=== PATIENT | female | born 1990 | race American Indian/Alaskan Native ===

== ENCOUNTER 2017-07-22 09:03 | Emergency (ER) | payer MEDICAID ==
[2017-07-22 09:51] LABS: Basophils # (Auto) 0.1 K/mm3 (0.0-0.1); Basophils % (Auto) 0.6 % (0.0-1.8); Eosinophils # (Auto) 0.3 K/mm3 (0.0-0.4); Eosinophils % (Auto) 3.6 % (0.0-4.3); Hemoglobin 12.2 gm/dl (10.1-14.3); Lymphocytes # (Auto) 2.1 K/mm3 (1.2-5.4); Lymphocytes % (Auto) 22.6 % (13.4-35.0); Mean Corpuscular HGB Conc 34 % (30-34); Mean Corpuscular Hemoglobin 28 pg (28-32); Mean Corpuscular Volume 83 fl (79-97); Monocytes # (Auto) 1.1 K/mm3 (0.0-0.8); Monocytes % (Auto) 11.8 % (0.0-7.3); Platelet Count 278 K/mm3 (140-440); Red Blood Count 4.32 M/mm3 (3.65-5.03); Red Cell Distribution Width 14.5 % (13.2-15.2)
[2017-07-22 10:04] LABS: Alanine Aminotransferase 38 units/L (7-56); Albumin 4.1 g/dL (3.9-5); BUN/Creatinine Ratio 22; Blood Urea Nitrogen 11 mg/dL (7-17); Calcium 8.8 mg/dL (8.4-10.2); Hemolysis Index 12
[2017-07-22 10:18] LABS: Bilirubin,Urine NEG (Negative); Blood,Urine NEG (Negative); Color,Urine Yellow (Yellow); Protein,Urine <15 mg/dL mg/dL (Negative); RBC,Urine < 1.0 /HPF (0.0-6.0); Urobilinogen,Urine < 2.0 mg/dL (<2.0); WBC,Urine < 1.0 /HPF (0.0-6.0)
--- NOTE | 2017-07-22 12:07 | Emergency Department Report ---
ED Female HPI - General Chief complaint: Abdominal Pain Stated complaint: ABD PAIN Time Seen by Provider: 07/22/17 11:38 Source: patient Mode of arrival: Ambulatory Limitations: No Limitations - History of Present Illness Initial comments: This is a 26-year-old female who presents to ED complaining of no menstrual cycle since March. Patient also states she noticed some Y malodorous vaginal discharge or couple of days. She denies vaginal itching, dysuria, frequency. Patient admits intermittent nausea. Patient states she is not taking any medication or has any apical allergies. MD Complaint: vaginal discharge, pelvic pain - Related Data Previous Rx's Medication Instructions Recorded Last Taken Type Sulfamethoxazole/Trimethoprim 1 each PO BID #14 tablet 03/24/15 Unknown Rx [Bactrim DS TAB] metroNIDAZOLE 0.75% [Vandazole 1 applicator VG QHS #1 tube 03/24/15 Unknown Rx 0.75% VAGINAL] Doxycycline [Vibramycin CAP] 100 mg PO Q12HR #20 capsule 07/02/15 Unknown Rx HYDROcodone/APAP 5-325 [[place] 1 each PO Q6HR PRN #20 tablet 09/10/15 Unknown Rx 5/325] Ibuprofen [Motrin] 800 mg PO Q8HR PRN #30 tablet 09/10/15 Unknown Rx Acetaminophen/Codeine [Tylenol #3] 1 tab PO Q6H PRN #7 tab 12/01/15 Unknown Rx Norgestimate-Ethinyl Estradiol 1 each PO DAILY #28 tablet 07/22/17 Unknown Rx [Tri-Sprintec Tablet] metroNIDAZOLE [Flagyl TAB] 500 mg PO Q12HR #20 tab 07/22/17 Unknown Rx Allergies Allergy/AdvReac Type Severity Reaction Status Date / Time No Known Allergies Allergy Verified 07/22/17 09:12 ED Review of Systems ROS: Stated complaint: ABD PAIN Other details as noted in HPI Constitutional: denies: chills, fever Eyes: denies: eye pain, eye discharge, vision change ENT: denies: ear pain, throat pain Respiratory: denies: cough, shortness of breath, wheezing Cardiovascular: denies: chest pain, palpitations Endocrine: no symptoms reported Gastrointestinal: denies: abdominal pain, nausea, diarrhea Genitourinary: denies: urgency, dysuria, discharge Musculoskeletal: denies: back pain, joint swelling, arthralgia Skin: denies: rash, lesions Neurological: denies: headache, weakness, paresthesias Psychiatric: denies: anxiety, depression Hematological/Lymphatic: denies: easy bleeding, easy bruising ED Past Medical Hx - Past Medical History Previous Medical History?: No Hx Psychiatric Treatment: Yes (reports 1 IP tx 4 yrs ago) - Surgical History Additional Surgical History: x1 ectopic - Social History Smoking Status: Current Some Day Smoker Substance Use Type: Marijuana - Medications Home Medications: Home Medications Medication Instructions Recorded Confirmed Last Taken Type Sulfamethoxazole/Trimethoprim 1 each PO BID #14 tablet 03/24/15 Unknown Rx [Bactrim DS TAB] metroNIDAZOLE 0.75% [Vandazole 1 applicator VG QHS #1 tube 03/24/15 Unknown Rx 0.75% VAGINAL] Doxycycline [Vibramycin CAP] 100 mg PO Q12HR #20 capsule 07/02/15 Unknown Rx HYDROcodone/APAP 5-325 [[place] 1 each PO Q6HR PRN #20 tablet 09/10/15 Unknown Rx 5/325] Ibuprofen [Motrin] 800 mg PO Q8HR PRN #30 tablet 09/10/15 Unknown Rx Acetaminophen/Codeine [Tylenol #3] 1 tab PO Q6H PRN #7 tab 12/01/15 Unknown Rx Norgestimate-Ethinyl Estradiol 1 each PO DAILY #28 tablet 07/22/17 Unknown Rx [Tri-Sprintec Tablet] metroNIDAZOLE [Flagyl TAB] 500 mg PO Q12HR #20 tab 07/22/17 Unknown Rx ED Physical Exam - General Limitations: No Limitations General appearance: alert, in no apparent distress - Head Head exam: Present: atraumatic, normocephalic - Eye Eye exam: Present: normal appearance - ENT ENT exam: Present: mucous membranes moist - Neck Neck exam: Present: normal inspection - Respiratory Respiratory exam: Present: normal lung sounds bilaterally. Absent: respiratory distress - Cardiovascular Cardiovascular Exam: Present: regular rate, normal rhythm. Absent: systolic murmur, diastolic murmur, rubs, gallop - GI/Abdominal GI/Abdominal exam: Present: soft, normal bowel sounds - External exam: Present: normal external exam. Absent: erythema, swelling, lesions, lacerations Speculum exam: Present: normal speculum exam, vaginal discharge. Absent: cervical discharge, vaginal bleeding Bi-manual exam: Present: normal bi-manual exam. Absent: cervical motion tendernes, adnexal tenderness, adnexal mass, uterine enlargement, uterine tenderness - Extremities Exam Extremities exam: Present: normal inspection - Back Exam Back exam: Present: normal inspection - Neurological Exam Neurological exam: Present: alert, oriented X3 - Psychiatric Psychiatric exam: Present: normal affect, normal mood - Skin Skin exam: Present: warm, dry, intact, normal color. Absent: rash ED Course Vital Signs 07/22/17 09:12 Temperature 98.8 F Pulse Rate 99 H Respiratory 16 Rate Blood Pressure 119/77 O2 Sat by Pulse 99 Oximetry ED Medical Decision Making - Lab Data Result diagrams: 07/22/17 09:30 07/22/17 09:30 Critical care attestation.: If time is entered above; I have spent that time in minutes in the direct care of this critically ill patient, excluding procedure time. ED Disposition Clinical Impression: Bacterial vaginosis, Vulvovaginitis, Amenorrhea due to Depo Provera Disposition: - TO HOME OR SELFCARE Is pt being admited?: No Does the pt Need Aspirin: No Condition: Stable Instructions: Abdominal Pain (ED), Bacterial Vaginosis (ED), Medroxyprogesterone (Injection) Additional Instructions: Make sure to follow up with the gynn as discussed. Take all your medications as you've been prescribed. If you have any worsening symptoms or develop new symptoms please return to ED immediately. Prescriptions: metroNIDAZOLE [Flagyl TAB] 500 mg PO Q12HR #20 tab Norgestimate-Ethinyl Estradiol [Tri-Sprintec Tablet] 1 each PO DAILY #28 tablet Referrals: PRIMARY MD LILIANE [Primary Care Provider] - 3-5 Days SHANE KENNEY MD [Referring] - 3-5 Days [facility] [Outside] - 3-5 Days Forms: STI Treatment and Prevention, Work/School Release Form(ED) Time of Disposition: 13:09
[2017-07-22 13:06] VITALS: BP 128/75
== END 2017-07-22 13:16 | disposition home or self-care (01) ==
LOC: ED 09:03
DX: N76.0 Acute vaginitis (principal); B96.89 Other specified bacterial agents as the cause of diseases classified elsewhere; N91.2 Amenorrhea, unspecified; F17.200 Nicotine dependence, unspecified, uncomplicated; F12.10 Cannabis abuse, uncomplicated
CPT/HCPCS: 36415; 80053; 81001; 84703; 85025; 87210; 87591; 99284

== ENCOUNTER 2017-10-20 14:35 | Emergency (ER) | payer SELFPAY ==
[2017-10-20 15:05] VITALS: BP 131/77
[2017-10-20 15:28] LABS: HCG Qualitative,Urine Negative (Negative)
[2017-10-20 15:32] LABS: Bilirubin,Urine NEG (Negative); Blood,Urine NEG (Negative); Color,Urine Yellow (Yellow); Protein,Urine <15 mg/dL mg/dL (Negative)
== END 2017-10-20 16:26 | disposition left against medical advice (07) ==
LOC: ED 14:35
DX: R10.9 Unspecified abdominal pain (principal); N89.8 Other specified noninflammatory disorders of vagina; Z53.21 Procedure and treatment not carried out due to patient leaving prior to being seen by health care provider
CPT/HCPCS: 81001; 81025

== ENCOUNTER 2018-05-28 23:43 | Emergency (ER) | payer SELFPAY ==
[2018-05-29 01:18] LABS: Basophils # (Auto) 0.1 K/mm3 (0.0-0.1); Basophils % (Auto) 0.4 % (0.0-1.8); Eosinophils # (Auto) 0.1 K/mm3 (0.0-0.4); Hematocrit 38.3 % (30.3-42.9); Hemoglobin 12.7 gm/dl (10.1-14.3); Lymphocytes # (Auto) 3.4 K/mm3 (1.2-5.4); Lymphocytes % (Auto) 24.7 % (13.4-35.0); Mean Corpuscular HGB Conc 33 % (30-34); Mean Corpuscular Volume 86 fl (79-97); Monocytes # (Auto) 1.4 K/mm3 (0.0-0.8); Platelet Count 307 K/mm3 (140-440); Red Blood Count 4.45 M/mm3 (3.65-5.03); Red Cell Distribution Width 14.3 % (13.2-15.2)
[2018-05-29 01:39] LABS: BUN/Creatinine Ratio 10; Blood Urea Nitrogen 6 mg/dL (7-17); Calcium 9.2 mg/dL (8.4-10.2); Hemolysis Index 15
--- NOTE | 2018-05-29 03:48 | Ultrasound Report ---
FINAL REPORT PROCEDURE: US OB <= 14 WEEKS FETUS TECHNIQUE: Real-time transabdominal sonography of the uterus, placenta, amniotic fluid, adnexa, and fetus was performed with image documentation. Measurements were obtained to determine age/size. M-mode Doppler was used to document heartbeat. CPT 21579 HISTORY: 5 weeks with abd pain COMPARISON: No prior studies are available for comparison. FINDINGS: CRL: 46 mm, which corresponds to a gestational age of: 6 weeks, 1 day. Yolk Sac: Normal. Embryonic Cardiac Activity: 123 beats per minute Gestational Sac: Normal. Amniotic fluid: Normal. Cervix: Normal. Right Ovary: Normal. Left Ovary: Normal. Estimated delivery date: 01/21/2019 Uterus and adnexa: Normal. IMPRESSION: Single live intrauterine gestation at approximately 6 weeks and 1 day. EDC by US 01/21/2019
--- NOTE | 2018-05-29 03:49 | Ultrasound Report ---
FINAL REPORT PROCEDURE: US OB TRANSVAGINAL TECHNIQUE: Real-time transvaginal sonography of the uterus, placenta, amniotic fluid, adnexa, and fe tus was performed with image documentation. Measurements were obtained to determine age/size. M -mode Doppler was used to document heartbeat. HISTORY: 5 weeks with abd pain COMPARISON: No prior studies are available for comparison. FINDINGS: CRL: 46 mm, which corresponds to a gestational age of: 6 weeks, 1 day. Yolk Sac: Normal. Embryonic Cardiac Activity: 123 beats per minute Gestational Sac: Normal. Amniotic fluid: Normal. Cervix: Normal. Right Ovary: Normal. Left Ovary: Normal. Estimated delivery date: 01/21/2019 Uterus and adnexa: Normal. IMPRESSION: Single live intrauterine gestation at approximately 6 weeks and 1 day. EDC by US 01/21/2019
--- NOTE | 2018-05-29 04:19 | Emergency Department Report ---
ED Abdominal Pain HPI - General Chief Complaint: Abdominal Pain Stated Complaint: STOMACH PAIN 5WKS CAR Time Seen by Provider: 05/29/18 01:59 Source: patient Mode of arrival: Ambulatory Limitations: No Limitations - History of Present Illness Initial Comments: 27-year-old -Welsh female that reports is 5 weeks comes in with left side abdominal pain 2 weeks. Patient reports nausea but no vomiting and no vaginal bleeding normal vaginal discharge. Patient has a past medical history of ectopic in the left to the head ruptured and had to have been urgency surgery. This was performed at [place]. Patient reports that the pain is constant as dull and sharp at times. Patient is taken nothing for pain. Patient does admit to smoking cigarettes in weed. MD Complaint: abdominal pain -: week(s) (2) Location: LLQ Radiation: suprapubic Migration to: no migration Severity: moderate Severity scale (0 -10): 7 Quality: sharp, dull Consistency: constant Improves With: nothing Worsens With: nothing Associated Symptoms: diarrhea Treatments Prior to Arrival: other (none) - Related Data LMP Date: 04/18/18 LMP (females 10-50): Previous Rx's Medication Instructions Recorded Last Taken Type Sulfamethoxazole/Trimethoprim 1 each PO BID #14 tablet 03/24/15 Unknown Rx [Bactrim DS TAB] metroNIDAZOLE 0.75% [Vandazole 1 applicator VG QHS #1 tube 03/24/15 Unknown Rx 0.75% VAGINAL] Doxycycline [Vibramycin CAP] 100 mg PO Q12HR #20 capsule 07/02/15 Unknown Rx HYDROcodone/APAP 5-325 [[place] 1 each PO Q6HR PRN #20 tablet 09/10/15 Unknown Rx 5/325] Ibuprofen [Motrin] 800 mg PO Q8HR PRN #30 tablet 09/10/15 Unknown Rx Acetaminophen/Codeine [Tylenol #3] 1 tab PO Q6H PRN #7 tab 12/01/15 Unknown Rx Norgestimate-Ethinyl Estradiol 1 each PO DAILY #28 tablet 07/22/17 Unknown Rx [Tri-Sprintec Tablet] metroNIDAZOLE [Flagyl TAB] 500 mg PO Q12HR #20 tab 07/22/17 Unknown Rx Acetaminophen 2 tab PO Q4-6H #24 tablet 05/29/18 Unknown Rx Allergies Allergy/AdvReac Type Severity Reaction Status Date / Time No Known Allergies Allergy Verified 07/22/17 09:12 ED Review of Systems ROS: Stated complaint: STOMACH PAIN 5WKS CAR Other details as noted in HPI Comment: All other systems reviewed and negative Gastrointestinal: abdominal pain, nausea ED Past Medical Hx - Past Medical History Previous Medical History?: No Hx Psychiatric Treatment: Yes (reports 1 IP tx 4 yrs ago) Additional medical history: OVARIAN CYST, HX OF PSYCH DUE TO ATTEMPTED TO COMMIT SUICIDE - Surgical History Past Surgical History?: Yes Additional Surgical History: x1 ,ectopic, MISCARRIAGE - Social History Smoking Status: Current Every Day Smoker Substance Use Type: Marijuana - Medications Home Medications: Home Medications Medication Instructions Recorded Confirmed Last Taken Type Sulfamethoxazole/Trimethoprim 1 each PO BID #14 tablet 03/24/15 Unknown Rx [Bactrim DS TAB] metroNIDAZOLE 0.75% [Vandazole 1 applicator VG QHS #1 tube 03/24/15 Unknown Rx 0.75% VAGINAL] Doxycycline [Vibramycin CAP] 100 mg PO Q12HR #20 capsule 07/02/15 Unknown Rx HYDROcodone/APAP 5-325 [[place] 1 each PO Q6HR PRN #20 tablet 09/10/15 Unknown Rx 5/325] Ibuprofen [Motrin] 800 mg PO Q8HR PRN #30 tablet 09/10/15 Unknown Rx Acetaminophen/Codeine [Tylenol #3] 1 tab PO Q6H PRN #7 tab 12/01/15 Unknown Rx Norgestimate-Ethinyl Estradiol 1 each PO DAILY #28 tablet 07/22/17 Unknown Rx [Tri-Sprintec Tablet] metroNIDAZOLE [Flagyl TAB] 500 mg PO Q12HR #20 tab 07/22/17 Unknown Rx Acetaminophen 2 tab PO Q4-6H #24 tablet 05/29/18 Unknown Rx ED Physical Exam - General Limitations: No Limitations General appearance: alert, in no apparent distress - Head Head exam: Present: atraumatic, normocephalic - Eye Eye exam: Present: normal appearance - ENT ENT exam: Present: mucous membranes moist - Neck Neck exam: Present: normal inspection - Respiratory Respiratory exam: Present: normal lung sounds bilaterally. Absent: respiratory distress - Cardiovascular Cardiovascular Exam: Present: regular rate, normal rhythm. Absent: systolic murmur, diastolic murmur, rubs, gallop - GI/Abdominal GI/Abdominal exam: Present: soft, normal bowel sounds. Absent: distended, t enderness, guarding, rebound, rigid - Extremities Exam Extremities exam: Present: normal inspection, full ROM - Back Exam Back exam: Present: normal inspection, full ROM - Neurological Exam Neurological exam: Present: alert, oriented X3 - Psychiatric Psychiatric exam: Present: normal affect, normal mood - Skin Skin exam: Present: warm, dry, intact, normal color. Absent: rash ED Course Vital Signs 05/29/18 00:13 Temperature 98.8 F Pulse Rate 93 H Respiratory 16 Rate Blood Pressure 111/63 O2 Sat by Pulse 100 Oximetry ED Medical Decision Making - Lab Data Result diagrams: 05/29/18 01:05 05/29/18 01:05 - Radiology Data Radiology results: report reviewed FINAL REPORT PROCEDURE: US OB TRANSVAGINAL TECHNIQUE: Real-time transvaginal sonography of the uterus, placenta, amniotic fluid, adnexa, and fetus was performed with image documentation. Measurements were obtained to determine age/size. M-mode Doppler was used to document heartbeat. HISTORY: 5 weeks with abd pain COMPARISON: No prior studies are available for comparison. FINDINGS: CRL: 46 mm, which corresponds to a gestational age of: 6 weeks, 1 day. Yolk Sac: Normal. Embryonic Cardiac Activity: 123 beats per minute Gestational Sac: Normal. Amniotic fluid: Normal. Cervix: Normal. Right Ovary: Normal. Left Ovary: Normal. Estimated delivery date: 01/21/2019 Uterus and adnexa: Normal. IMPRESSION: Single live intrauterine gestation at approximately 6 weeks and 1 day. EDC by US 01/21/2019 Transcribed By: CO Dictated By: KAVITHA PEREZ MD Electronically Authenticated By: KAVITHA PEREZ MD Signed Date/Time: 05/29/18 0349 DD/ 0 TD/TT: 05/29/18350 - Medical Decision Making Patient has been evaluated by this provider in fast track. Discussed the patient she can have Tylenol for pain. Patient reports that she has vitamins at home that she will take. Discussed the patient and I will refer her to an installers mechanical. Ultrasound shows the patient is 6 weeks and 1 day with intrauterine gestation Critical care attestation.: If time is entered above; I have spent that time in minutes in the direct care of this critically ill patient, excluding procedure time. ED Disposition Clinical Impression: Left lower quadrant pain Qualifiers: Weeks of gestation: less than 8 weeks Qualified Code(s): Z3A.01 - Less than 8 weeks gestation of Disposition: TO HOME OR SELFCARE Is pt being admited?: No Does the pt Need Aspirin: No Condition: Stable Instructions: Abdominal Pain (ED) Additional Instructions: Please take pain medication as needed. Please follow up with her installers mechanical I have listed several for your convenience. Prescriptions: Acetaminophen 2 tab PO Q4-6H #24 tablet Referrals: PRIMARY CARE, [Primary Care Provider] - 3-5 Days [facility] [Provider Group] - 3-5 Days [facility] [Provider Group] - 3-5 Days [facility] [Provider Group] - 3-5 Days [facility] [Provider Group] - 3-5 Days Forms: Work/School Release Form(ED), Accompanied Note
[2018-05-29 05:01] LABS: Bilirubin,Urine NEG (Negative); Blood,Urine NEG (Negative); Calcium Oxalate Crystals,Urine 1+; Color,Urine Yellow (Yellow); Mucus,Urine 3+ /HPF; Protein,Urine <15 mg/dL mg/dL (Negative)
[2018-05-29 06:33] VITALS: BP 114/63
== END 2018-05-29 06:32 | disposition home or self-care (01) ==
LOC: ED 23:43
DX: O26.891 Other specified pregnancy related conditions, first trimester (principal); O99.331 Smoking (tobacco) complicating pregnancy, first trimester; O34.81 Maternal care for other abnormalities of pelvic organs, first trimester; R10.2 Pelvic and perineal pain; N89.8 Other specified noninflammatory disorders of vagina; R19.7 Diarrhea, unspecified; R11.0 Nausea; N83.209 Unspecified ovarian cyst, unspecified side; F12.10 Cannabis abuse, uncomplicated; Z79.899 Other long term (current) drug therapy; Z3A.01 Less than 8 weeks gestation of pregnancy
CPT/HCPCS: 36415; 76801; 76817; 80048; 81001; 84702; 85025; 99283

== ENCOUNTER 2018-11-22 12:23 | Outpatient (CLI) | payer MEDICAID ==
[2018-11-22 12:58] VITALS: BP 101/51
[2018-11-22] MEDS ORDERED: LACTATED RINGERS 500 ML IV ONE (13:00)
[2018-11-22 13:52] LABS: Bacteria,Urine 1+ /HPF (Negative); Bilirubin,Urine NEG (Negative); Blood,Urine NEG (Negative); Color,Urine Yellow (Yellow); Mucus,Urine FEW /HPF; Protein,Urine <15 mg/dL mg/dL (Negative); Urobilinogen,Urine < 2.0 mg/dL (<2.0)
[2018-11-22] MEDS ORDERED: LACTATED RINGERS 1,000 ML IV ONE (13:55)
--- NOTE | 2018-11-22 14:46 | Ultrasound Report ---
Limited OB ultrasound INDICATION: and leaking fluid FINDINGS: There is a single intrauterine . Fetus is in a cephalic presentation. Amniotic fluid index is 8.6 cm which is within the normal range. heart rate is 127 bpm. IMPRESSION: Amniotic fluid index is 8.6 cm which is within the normal range. Signer Name: Rojas Camejo MD Signed: 11/22/2018 2:42 PM Workstation Name: [id number]
== END 2018-11-22 15:10 | disposition home or self-care (01) ==
LOC: TRG 12:23
PROVIDERS: ATTEND Obstetrics & Gynecology
DX: O47.03 False labor before 37 completed weeks of gestation, third trimester (principal); Z3A.31 31 weeks gestation of pregnancy
CPT/HCPCS: 76815; 81001

== ENCOUNTER 2020-05-08 08:08 | Day surgery (SDC) | payer MEDICAID ==
--- NOTE | 2020-05-04 11:56 | Anesthesia Consultation ---
Anesthesia Consult and Med Hx Date of service: 05/08/20 - Airway Anesthetic Teeth Evaluation: Good (Missing) ROM Head & Neck: Adequate Mental/Hyoid Distance: Adequate Mallampati Class: Class III Intubation Access Assessment: Probably Good - Cardiac Exam Anesthetic Concerns: PONV - Pre-Operative Health Status ASA Pre-Surgery Classification: ASA2 Proposed Anesthetic Plan: General Nerve Block: TAP - Pulmonary Hx Smoking: Yes (QUIT 04/25/20) Hx Asthma: No COPD: No Hx Sleep Apnea: No (JAVIER PRE SCREEN NEGATIVE) - Cardiovascular System Hx Hypertension: No Hx Heart Attack/AMI: No Hx Pacemaker: No Hx Internal Defibrillator: No - Central Nervous System Hx Seizures: No Hx Back Pain: Yes (NECK PAIN) Hx Psychiatric Problems: Yes (HX SUICIDAL THOUGHTS/ ATTEMPT. Anxiet y/Depression/?Bipolar) - Endocrine Hx Renal Disease: No Hx End Stage Renal Disease: No Hx Cirrhosis: No Hx Liver Disease: No Hx Hypothyroidism: No Hx Hyperthyroidism: No - Hematic Hx Anemia: Yes Hx Sickle Cell Disease: No (TRAIT) - Other Systems Hx Alcohol Use: Yes (OCC BEER ) Hx Substance Use: Yes (MARIJUANA-OCC.) Hx Cancer: No Hx Obesity: No - Additional Comments Anesthesia Medical History Comments: Gum bleeding
[~2020-05-08 08:08] MED LIST: ACETAMINOPHEN 500 MG TAB PO NR; CELECOXIB 200 MG CAP PO NR; GABAPENTIN 300 MG CAP PO NR; LACTATED RINGERS 1,000 ML IV SCH; MAGNESIUM OXIDE 400 MG TAB PO NR; MIDAZOLAM 2 MG/2 ML INJ IV NR; ceFAZolin/Water 2 GM/20 ML 2 GM/20 ML SYRINGE IV NR; fentaNYL 100 MCG/2 ML INJ IV NR
--- NOTE | 2020-05-08 08:36 | Anesthesia Day of Surgery ---
Anesthesia Day of Surgery - Day of Surgery Patient Examined: Yes Patient H&P Reviewed: Yes Patient is NPO: Yes
[2020-05-08] MEDS ORDERED: ONDANSETRON 4 MG/2 ML INJ IV PRN (08:37)
[2020-05-08] MEDS ORDERED: HYDROmorphone 1 MG/1 ML INJ IV PRN (08:37)
[2020-05-08] MEDS ORDERED: dexAMETHasone 4 MG/ML VIAL ONE (08:37)
[2020-05-08] MEDS ORDERED: SCOPOLAMINE TRANSDERMAL PATCH 72 HR TD NR (08:37)
[2020-05-08] MEDS ORDERED: BUPIVACAINE-EPINEPHRINE/PF 0.5%-1:200,000 (30 ML) VIAL INFILTRATI ONE (08:37)
--- NOTE | 2020-05-08 10:12 | Progress Note ---
Regional Anesthesia Block - Regional Anesthesia Block Start Time: 10:02 Stop Time: 10:08 Performed By:: ROSHAN MCGUIRE Procedure: Bilateral Ultrasound Guided TAP Block Pt IDd, consent obtained, time out performed. Pt on monitor + O2 via NC, VS stable, sedation given per pre-op RN. Sterile prep. Landmarks identified with ultrasound. [1.5]cc skin wheel with 1% lidocaine. Needle advance in plane with ultrasound. [30]cc [0.25]% bupivacaine [w/ epi] + [4]mg decadron injected incrementally with negative aspiration. Procedure repeated on opposite side. Pt tolerated procedure well, no immediate complications noted.
[2020-05-08] MEDS ORDERED: propofoL 200 MG/20 ML VIAL IV ONE (10:22)
[2020-05-08] MEDS ORDERED: ROCURONIUM 50 MG/5 ML INJ IV ONE (10:22)
[2020-05-08] MEDS ORDERED: fentaNYL 100 MCG/2 ML INJ ONE (10:22)
[2020-05-08] MEDS ORDERED: LIDOCAINE MPF (2%) 20 MG/1 ML VIAL 5 ML ONE (10:22)
[2020-05-08] MEDS ORDERED: WATER FOR IRRIG STERILE 1,500 ML BOTTLE IR ONE (11:29)
[2020-05-08] MEDS ORDERED: ONDANSETRON 4 MG/2 ML INJ ONE ×2 (12:45→13:42)
[2020-05-08] MEDS ORDERED: NEOSTIGMINE 10MG/10 ML INJ MDV ONE (12:45)
[2020-05-08] MEDS ORDERED: GLYCOPYRROLATE 0.4 MG/2 ML INJ ONE (12:45)
[2020-05-08] MEDS ORDERED: dexAMETHasone 20 MG/5 ML VIAL ONE (12:45)
--- NOTE | 2020-05-08 12:46 | Short Stay Summary ---
Short Stay Documentation Date of service: 05/08/20 - History Principal diagnosis: ventral hernia H&P: obtained from office - Allergies and Medications Current Medications: Allergies acetaminophen [From Percocet] Allergy (Verified 05/08/20 10:56) Vomiting PT STATES SHE CAN TAKE PLAIN TYLENOL WITHOUT DIFFICULTIES oxycodone [From Percocet] Allergy (Verified 05/04/20 14:32) Vomiting, DELUSIONAL pollen extracts Allergy (Verified 11/22/18 12:32) Itching Home Medications Medication Instructions Recorded Confirmed Last Taken Type One-Daily Multi-Vitamin 1 tab PO DAILY 05/02/20 05/08/20 3 Days Ago History ~05/05/20 Active Medications Acetaminophen (Acetaminophen 500 Mg Tab) 1,000 mg PO ONCE NR Stop: 05/08/20 20:00 Last Admin: 05/08/20 09:25 Dose: 1,000 mg Documented by: Celecoxib (Celecoxib 200 Mg Cap) 400 mg PO PREOP NR Stop: 05/08/20 20:00 Last Admin: 05/08/20 09:25 Dose: 400 mg Documented by: Fentanyl (Fentanyl 100 Mcg/2 Ml Inj) 100 mcg IV ONCE NR Stop: 05/08/20 20:00 Last Admin: 05/08/20 10:04 Dose: 100 mcg Documented by: Gabapentin (Gabapentin 300 Mg Cap) 600 mg PO PREOP NR Stop: 05/08/20 20:00 Last Admin: 05/08/20 09:25 Dose: 600 mg Documented by: Hydromorphone HCl (Hydromorphone 1 Mg/1 Ml Inj) 0.5 mg IV Q10MIN PRN PRN Reason: Pain , Severe (7-10) Stop: 05/08/20 20:00 Lactated Ringer's (Lactated Ringers) 1,000 mls @ 125 mls/hr IV DIRECT SHAGGY Last Admin: 05/08/20 09:35 Dose: 125 mls/hr Documented by: Cefazolin Sodium (Ancef/Sterile Water 2 Gm/20 Ml) 2 gm in 20 mls @ 80 mls/hr IV PREOP NR Stop: 05/08/20 21:00 Magnesium Oxide (Magnesium Oxide 400 Mg Tab) 400 mg PO ONCE NR Stop: 05/08/20 20:00 Last Admin: 05/08/20 09:25 Dose: 400 mg Documented by: Ondansetron HCl (Ondansetron 4 Mg/2 Ml Inj) 4 mg IV ONCE PRN PRN Reason: Nausea And Vomiting Stop: 05/08/20 13:00 Scopolamine (Scopolamine Transdermal Patch 72 Hr) 1 each TD PREOP NR Stop: 05/08/20 20:00 Last Admin: 05/08/20 09:25 Dose: 1 each Documented by: - Brief post op/procedure progress note Date of procedure: 05/08/20 Pre-op diagnosis: ventral hernia Post-op diagnosis: same Procedure: robotic assisted lysis of adhesions, ventral hernia repair with mesh Anesthesia: GETA, other (TAP block) Findings: 2.5x3 cm ventral hernia containing preperitoneal fat and incarcerated omentum. - repaired with 11.4 cm bard ventralite composite mesh Adhesions from omentum to anterior abdominal wall Surgeon: ESTEVAN ISSA (Osman Preciado FLUME TENDER assist) Estimated blood loss: minimal Pathology: list (hernia sac) Specimen disposition: to lab Condition: stable - Hospital course Hospital course: Pt observed in PACU and discharged to home in stable condition when criteria met - Disposition Condition at discharge: Good Disposition: DC-01 TO HOME OR SELFCARE Short Stay Discharge Plan Activity: other (No heavy lifting until cleared by surgeon) Diet: regular Wound: open to air, per your surgeon's advice Additional Instructions: SEE PRINTED DISCHARGE INSTRUCTIONS Follow up with: PRIMARY CARE, [Primary Care Provider] - 7 Days ESTEVAN ISSA DO [Staff Physician] - 14 Days Prescriptions: Celecoxib [celeBREX] 200 mg PO BID 3 Days #6 capsule Gabapentin 300 mg PO BID 2 Days #6 capsule HYDROcodone/APAP 5-325 [[place] 5/325] 1 each PO Q6HR PRN 5 Days #20 tablet PRN Reason: Pain , Severe (7-10)
[2020-05-08] MEDS ORDERED: ONDANSETRON 4 MG/2 ML INJ IV NR (14:00)
[2020-05-08] MEDS ORDERED: HYDROcodone/ACETAMINOPHEN 5-325 MG TAB ONE (14:15)
[2020-05-08] MEDS ORDERED: HYDROcodone/ACETAMINOPHEN 5-325 MG TAB PO PRN (14:17)
[2020-05-08 14:34] VITALS: BP 103/55
--- NOTE | 2020-05-08 16:00 | Post Anesthesia Evaluation ---
- Post Anesthesia Evaluation Patient Participated: Yes Airway Patent: Yes Stable Respiratory Function: Yes Nausea/Vomiting: No Temp > 96.8F: Yes Pain Manageable: Yes Adequeate Hydration: Yes Anesthesia Complications: No
--- NOTE | 2020-05-08 16:58 | Operative Report ---
Operative Report Operative Report: Date of procedure: 05/08/20 Pre-op diagnosis: ventral hernia Post-op diagnosis: same Procedure: Robotic assisted lysis of adhesions, ventral hernia repair with mesh Anesthesia: GETA, other (TAP block) Findings: 2.5x3 cm ventral hernia containing preperitoneal fat and incarcerated omentum. - repaired with 11.4 cm bard ventralite composite mesh Adhesions from omentum to anterior abdominal wall Surgeon: ESTEVAN ISSA Undercar Specialist: Pam SAVAGE Estimated blood loss: minimal Pathology: list (hernia sac) Specimen disposition: to lab Condition: stable Hospital course: Pt observed in PACU and discharged to home in stable condition when criteria met HPI and indication: Patient is a 29-year-old female with a known ventral periumbilical hernia that has been present for 7 years. The patient noted the hernia was getting larger during her subsequent pregnancies and now is more uncomfortable. The patient is finished having children and presented to the surgery clinic for evaluation for repair. The hernia was palpable on exam. It was recommended that it be repaired. All risk benefits, alternatives to surgery discussed with patient questions answered. Consent obtained for robotic assisted possible open ventral hernia repair with mesh. Procedure in detail: The patient was identified in the preoperative area and taken back to the operating room and placed on the operating room table in supine position. After anesthesia was induced, both arms were tucked with all bony prominences padded appropriately. The abdomen was then prepped and draped in usual sterile fashion and a timeout was performed. The patient had a TAP block performed by anesthesia preoperatively. A caitie incision was made in the left upper quadrant at Mckay's point through which a Veress needle was inserted. The Veress needle position was confirmed using the saline drop test and the abdomen insufflated to 15 mmHg without incident. A 5 mm incision was made in the right upper quadrant through which a 5 mm Optiview trocar was placed under direct visualization. The abdomen was inspected and there was no underlying injury to any of the abdominal structures. The Veress needle was identified and removed. A 12 mm balloon trocar was placed in the right lateral abdomen and an 8 mm robotic trocar in the right lower quadrant under direct visualization. The 5 mm right upper quadrant trocar was replaced with an 8 mm robotic trocar under direct visualization. The patient was tilted to the left and the robot docked. A fenestrated bipolar was placed in arm #2 and a monopolar scissor in arm #1. The surgeon was then transferred to the console. There were omental adhesions to the anterior abdominal wall in the midline. I first started by dissecting these adhesions in order to get better visualization of the ventral hernia. Dissection was carried out very carefully using a combination of blunt dissection and electrocautery. During the dissection the hernia became more apparent. There was some omentum incarcerated in the hernia defect which was carefully reduced. Once all omentum was freed it was inspected and hemostasis ensured. I then proceeded to create a preperitoneal flap to the right of the hernia defect. The peritoneum was scored to the right of the hernia defect using a monopolar scissor and a preperitoneal plane developed in an avascular plane. Using a combination of blunt dissection and cautery the plane superior to and inferior to the hernia was developed. There was preperitoneal fat incarcerated in the hernia which was carefully dissected and reduced. I attempted to reduce the hernia sac however this was densely adhered to the skin. In order to prevent injury to the skin the hernia sac was transected. I then carried my preperitoneal dissection to the left aspect of the hernia defect in order to accommodate mesh placement. The patient's peritoneum was thin and several small peritoneal defects were created during the dissection. Once the dissection was complete the pocket was checked for hemostasis. The hernia defect was measured at 2.5 cm craniocaudal by 3 cm wide. It was decided to fix the hernia with a 11.4 cm Bard ventralite composite mesh. The mesh along with suture material placed into the abdomen by the assistant field hockey coach. First the hernia defect was closed using a oh VueLock running stitch. The pressure in the abdomen was turned down to 8 mmHg. The mesh was then placed in the preperitoneal space and centered. The uncoated side was placed against the abdominal wall. The mesh was sutured into place in all 4 quadrants using interrupted 2-0 Vicryl stitches. The mesh laid flat in the preperitoneal space with adequate overlap of the hernia. The peritoneum was approximated using 3 0 VLoc running stitch. A large defect at the center of the peritoneum was approximated using a 3 0 V-Loc running stitch. The robot was then undocked and the surgeon scrubbed back in. The remainder of the case was performed laparoscopically. All sharp and suture material was removed under direct visualization. The 12 mm port was removed and the fascia closed with an interrupted 0-vicryl stitch using the Shawn Hollingsworth device.. The right lower quadrant port fascia was also closed with an interrupted 0 Vicryl stitch using the Shawn Hollingsworth device. The right upper quadrant port was removed and the abdomen desufflated. The skin incisions were closed with 4-0 Monocryl subcuticular stitches and skin glue. Once the glue was dry a 4 x 4 gauze was balled up and placed at the umbilicus and secured with a Tegaderm. At the end of the case, all sponge, instrument, sharp counts were correct 2. An abdominal binder was applied to the patient. The patient was awoken from anesthesia, extubated and taken to PACU in stable condition.
== END 2020-05-08 15:30 | disposition home or self-care (01) ==
LOC: OR 08:08
PROVIDERS: ATTEND Surgery
DX: K43.6 Other and unspecified ventral hernia with obstruction, without gangrene (principal); Z20.828 Contact with and (suspected) exposure to other viral communicable diseases; K66.0 Peritoneal adhesions (postprocedural) (postinfection); G43.909 Migraine, unspecified, not intractable, without status migrainosus; K21.9 Gastro-esophageal reflux disease without esophagitis; M19.90 Unspecified osteoarthritis, unspecified site; F31.9 Bipolar disorder, unspecified; F41.9 Anxiety disorder, unspecified; D64.9 Anemia, unspecified; Z88.8 Allergy status to other drugs, medicaments and biological substances; Z79.899 Other long term (current) drug therapy; Z87.891 Personal history of nicotine dependence; Z86.718 Personal history of other venous thrombosis and embolism; Z98.891 History of uterine scar from previous surgery; Z87.440 Personal history of urinary (tract) infections; Z72.89 Other problems related to lifestyle; Z98.890 Other specified postprocedural states; Z82.49 Family history of ischemic heart disease and other diseases of the circulatory system
CPT/HCPCS: 49653; 81025; 88302; C1781; J0690; J1100; J1170; J2250; J2405; J2704; J2710; J3010; J7120; S2900; U0003; 64450